=== PATIENT | female | born 1970 | race American Indian/Alaskan Native ===

== ENCOUNTER 2019-03-12 21:18 | Observation (INO) | payer BC, OTHER ==
[2019-03-12] MEDS ORDERED: CATAPRES PO ONE (21:48)
--- NOTE | 2019-03-12 21:48 | Emergency Department Report ---
Blank Doc - Documentation Documentation: This is a 48-year-old female that presents with chest pain and SOB with radiat ion to left arm. HTN in triage. This initial assessment/diagnostic orders/clinical plan/treatment(s) is/are subject to change based on patient's health status, clinical progression and re-assessment by fellow clinical providers in the ED. Further treatment and workup at subsequent clinical providers discretion. Patient/guardians urged not to elope from the ED as their condition may be serious if not clinically assessed and managed. Initial orders include: 1- Patient sent to MAIN ED for further evaluation and treatment 2- labs 3- EKG 4- CXR 5- catapres
[2019-03-12] MEDS ORDERED: BABY ASPIRIN PO ONE (21:49)
[2019-03-12 22:34] LABS: Basophils % (Auto) 0.4 % (0.0-1.8); Eosinophils % (Auto) 0.5 % (0.0-4.3); Hematocrit 39.3 % (30.3-42.9); Hemoglobin 13.3 gm/dl (10.1-14.3); Lymphocytes # (Auto) 2.3 K/mm3 (1.2-5.4); Lymphocytes % (Auto) 34.8 % (13.4-35.0); Mean Corpuscular HGB Conc 34 % (30-34); Mean Corpuscular Volume 96 fl (79-97); Monocytes # (Auto) 0.4 K/mm3 (0.0-0.8); Monocytes % (Auto) 6.6 % (0.0-7.3); Platelet Count 213 K/mm3 (140-440); Red Blood Count 4.11 M/mm3 (3.65-5.03); Red Cell Distribution Width 13.7 % (13.2-15.2)
[2019-03-12 22:45] LABS: INR 0.98 (0.87-1.13)
[2019-03-12 22:46] LABS: Partial Thromboplastin Time 31.7 Sec. (24.2-36.6)
[2019-03-12 22:55] LABS: BUN/Creatinine Ratio 12; Blood Urea Nitrogen 11 mg/dL (7-17); Hemolysis Index 5
[2019-03-12 23:15] LABS: Bacteria,Urine 1+ /HPF (Negative); Bilirubin,Urine NEG (Negative); Blood,Urine SM (Negative); Color,Urine Yellow (Yellow); Hyaline Casts,Urine 4 /LPF; Mucus,Urine 3+ /HPF; Protein,Urine <15 mg/dL mg/dL (Negative); Urobilinogen,Urine < 2.0 mg/dL (<2.0)
[2019-03-12 23:21] LABS: Amphetamine Screen,Urine PRESUMPTIVE NEGATIVE; Benzodiazepines Screen,Urine PRESUMPTIVE NEGATIVE; Cocaine Screen,Urine PRESUMPTIVE NEGATIVE; Methadone Screen,Urine PRESUMPTIVE NEGATIVE; Opiate Screen,Urine PRESUMPTIVE NEGATIVE
--- NOTE | 2019-03-12 23:28 | XRay Report ---
PROCEDURE: XR CHEST ROUTINE 2V TECHNIQUE: PA and lateral chest radiographs were obtained. HISTORY: Chest Pain COMPARISONS: None. FINDINGS: Heart: Normal. Mediastinum/Vessels: Normal. Lungs/Pleural space: Normal. Bony thorax: No acute osseous abnormality. IMPRESSION: No acute pulmonary disease. This document is electronically signed by Cirilo Olsen MD., Mar 12 2019 11:26:47 PM ET
[2019-03-12] MEDS ORDERED: ZOFRAN IV ONE (23:35)
[2019-03-12] MEDS ORDERED: MORPHINE IV ONE (23:35)
[2019-03-12 23:42] LABS: Cannabinoid Screen,Urine PRESUMPTIVE POSITIVE
[2019-03-13 00:13] LABS: Alanine Aminotransferase 7 units/L (7-56); Albumin 3.5 g/dL (3.9-5)
[2019-03-13 00:16] LABS: Bilirubin,Direct < 0.2 mg/dL (0-0.2)
--- NOTE | 2019-03-13 01:34 | Emergency Department Report ---
ED Abdominal Pain HPI - General Chief Complaint: Chest Pain Stated Complaint: CHEST AND ABD PAIN Time Seen by Provider: 03/12/19 21:45 Source: patient Mode of arrival: Ambulatory Limitations: No Limitations - History of Present Illness Initial Comments: 48-year-old female with history of hypertension presents to ED with abdominal pain 3 days. Patient states pain is located in the epigastric and left upper quadrant. The patient states she was diagnosed with pancreatitis in the past, and this pain feels similar to that. Denies any radiation of pain. Patient reports associated nausea and vomiting, denies fever. Patient also reported intermittent history of left-sided chest pain that radiates into the left arm, however patient states that her abdominal pain is worse than her chest pain right now. Patient denies alcohol use or drug use. PCP: arnol MD Complaint: abdominal pain -: days(s) (3) Location: LLQ, epigastric Radiation: none Migration to: no migration Severity: moderate Severity scale (0 -10): 4 Quality: aching Consistency: constant Improves With: nothing Worsens With: nothing Associated Symptoms: nausea, vomiting - Related Data Previous Rx's Medication Instructions Recorded Last Taken Type oxyCODONE /ACETAMINOPHEN [Percocet 1 tab PO Q6HR PRN #20 tablet 01/30/15 Unknown Rx 5/325] Allergies Allergy/AdvReac Type Severity Reaction Status Date / Time No Known Allergies Allergy Unverified 01/30/15 14:38 ED Review of Systems ROS: Stated complaint: CHEST AND ABD PAIN Other details as noted in HPI Comment: All other systems reviewed and negative Constitutional: denies: chills, fever Respiratory: shortness of breath Cardiovascular: chest pain Gastrointestinal: abdominal pain, nausea, vomiting ED Past Medical Hx - Past Medical History Hx Hypertension: Yes Hx Seizures: Yes - Surgical History Past Surgical History?: No - Social History Smoking Status: Current Every Day Smoker Substance Use Type: Marijuana - Medications Home Medications: Home Medications Medication Instructions Recorded Confirmed Last Taken Type oxyCODONE /ACETAMINOPHEN [Percocet 1 tab PO Q6HR PRN #20 tablet 01/30/15 Unknown Rx 5/325] ED Physical Exam - General Limitations: No Limitations General appearance: alert, in no apparent distress - Head Head exam: Present: atraumatic, normocephalic - Eye Eye exam: Present: normal appearance - ENT ENT exam: Present: mucous membranes moist - Neck Neck exam: Present: normal inspection - Respiratory Respiratory exam: Present: normal lung sounds bilaterally. Absent: respiratory distress - Cardiovascular Cardiovascular Exam: Present: regular rate, normal rhythm - GI/Abdominal GI/Abdominal exam: Present: soft, tenderness (mild epigastric and LUQ tenderness). Absent: distended - Extremities Exam Extremities exam: Present: normal inspection - Neurological Exam Neurological exam: Present: alert, oriented X3 - Psychiatric Psychiatric exam: Present: normal affect, normal mood - Skin Skin exam: Present: warm, dry, intact, normal color ED Course Vital Signs 03/12/19 03/12/19 03/12/19 21:24 21:50 22:11 Temperature 98.0 F Pulse Rate 95 H 79 Respiratory 20 Rate Blood Pressure 240/93 203/73 201/90 Blood Pressure [Left] O2 Sat by Pulse 99 Oximetry 03/12/19 03/12/19 03/12/19 22:13 22:31 22:35 Temperature 98.1 F Pulse Rate 86 76 Respiratory 14 18 Rate Blood Pressure 201/90 203/73 Blood Pressure 201/90 [Left] O2 Sat by Pulse 100 100 Oximetry 03/12/19 03/12/19 03/12/19 23:01 23:15 23:31 Temperature Pulse Rate 79 76 80 Respiratory 21 11 L 10 L Rate Blood Pressure 203/73 175/97 201/90 Blood Pressure [Left] O2 Sat by Pulse 100 100 100 Oximetry 03/13/19 03/13/19 03/13/19 00:00 00:31 01:00 Temperature Pulse Rate 84 81 83 Respiratory 15 13 16 Rate Blood Pressure 194/98 189/92 189/92 Blood Pressure [Left] O2 Sat by Pulse 99 100 100 Oximetry 03/13/19 02:11 Temperature Pulse Rate Respiratory Rate Blood Pressure 123/102 Blood Pressure [Left] O2 Sat by Pulse 100 Oximetry ED Medical Decision Making - Lab Data Result diagrams: 03/12/19 22:00 03/12/19 22:00 - EKG Data -: EKG Interpreted by Me EKG shows normal: sinus rhythm, axis, intervals, QRS complexes, ST-T waves Rate: normal - EKG Data Interpretation: no acute changes, LVH - Radiology Data Radiology results: report reviewed, image reviewed - Differential Diagnosis ACS, pancreatitis, PE Critical care attestation.: If time is entered above; I have spent that time in minutes in the direct care of this critically ill patient, excluding procedure time. ED Disposition Clinical Impression: Hypertensive urgency, Chest pain, Abdominal pain Disposition: DC-09 OP ADMIT IP TO THIS HOSP Is pt being admited?: Yes Condition: Stable Instructions: Chest Pain (ED) Referrals: PRIMARY CARE,MD [Primary Care Provider] - 3-5 Days Time of Disposition: 02:48
--- NOTE | 2019-03-13 02:33 | Cat Scan Report ---
PROCEDURE: CT ANGIO CHEST/ABDOMEN/PELVIS TECHNIQUE: Computerized tomographic angiography of the chest was performed after the IV injection of iodinated nonionic contrast including image processing. The image data was postprocessed using 2-di mensional multiplanar reformatted (MPR) and 3-dimensional (MIP and/or volume rendered) techniques. Co mputerized axial tomography of the abdomen and pelvis was performed after the IV injection of iodinat ed nonionic contrast. Oral contrast was administered. HISTORY: Short of breath, chest pain, chest pain, elevated d-dimer COMPARISONS: None . TECHNICAL QUALITY: Satisfactory. FINDINGS: Heart and pericardium: Heart is mildly enlarged. Thoracic aorta: No evidence for aortic aneurysm or dissection. Pulmonary vasculature: No evidence for acute pulmonary embolus. Lymph nodes: No enlarged thoracic lymph nodes. Lungs: Normal. Pleural space: No effusion, thickening, or pneumothorax. Liver: Punctate hypodensities seen in the liver, too small to fully characterize. Spleen: Normal size and attenuation. Gallbladder and biliary system: Normal. Pancreas: Normal. Kidneys and adrenal glands: Normal. GI tract: No evidence of bowel dilatation or obstruction. No CT evidence for appendicitis or divertic ulitis. Lymph nodes and mesentery: Normal. Vasculature: No evidence for aortic aneurysm. Bladder/pelvic structures: Normal. Intraperitoneal fluid: None. Musculoskeletal structures: No significant abnormality. Other: None . IMPRESSION: No evidence for aortic aneurysm or dissection. No evidence for acute pulmonary embolus. Mild cardiomegaly. This document is electronically signed by Ally Boyd MD., Mar 13 2019 02:31:13 AM ET
[2019-03-13] MEDS ORDERED: MORPHINE IV ONE (03:11)
[2019-03-13] MEDS ORDERED: APRESOLINE IV ONE (03:18)
[2019-03-13] MEDS ORDERED: SODIUM CHLORIDE FLUSH SYRINGE 10 ML IV PRN ×2 (03:20)
[2019-03-13] MEDS ORDERED: TYLENOL PO PRN (03:20)
[2019-03-13] MEDS ORDERED: ZOFRAN IV PRN (03:20)
[2019-03-13 03:43] LABS: Basophils % (Auto) 0.6 % (0.0-1.8); Eosinophils % (Auto) 0.4 % (0.0-4.3); Hematocrit 36.9 % (30.3-42.9); Hemoglobin 12.5 gm/dl (10.1-14.3); Lymphocytes # (Auto) 2.8 K/mm3 (1.2-5.4); Lymphocytes % (Auto) 44.9 % (13.4-35.0); Mean Corpuscular HGB Conc 34 % (30-34); Mean Corpuscular Volume 96 fl (79-97); Monocytes # (Auto) 0.4 K/mm3 (0.0-0.8); Monocytes % (Auto) 6.2 % (0.0-7.3); Platelet Count 209 K/mm3 (140-440); Red Blood Count 3.84 M/mm3 (3.65-5.03); Red Cell Distribution Width 14.1 % (13.2-15.2)
[2019-03-13] MEDS ORDERED: TORADOL IV ONE (03:49)
--- NOTE | 2019-03-13 03:53 | History and Physical Report ---
History of Present Illness Date of examination: 03/13/19 Date of admission: 03/13/2019 Chief complaint: Abdominal pain, x 3 days History of present illness: Pt is a 48-year-old female with PMHx of hypertension, seizure disorder, pancreatitis who presents to ER with abdominal pain 3 days. Patient states pain is located in the epigastric and left upper quadrant. Patient also reported intermittent chest pain that radiates to the left arm. Pt states that the pain in her abdomen is more bothersome that the chest pain. Patient reports that she was diagnosed with pancreatitis in the past, and the abdominal pain feels similar to the prior abdominal pain. Pt denies n/v/d, she denies radiation of pain, denies recent travelling, denies ill-contact, denies fever or chills denies recent alcohol use. Pt was seen in the ER and admitted for evaluation and treatment. Past History Past Medical History: hypertension, seizures, other (pancreatitis) Past Surgical History: No surgical history Social history: smoking (marijuana) Family history: no significant family history Medications and Allergies Allergies Allergy/AdvReac Type Severity Reaction Status Date / Time No Known Allergies Allergy Verified 04/12/19 10:16 Home Medications Medication Instructions Recorded Confirmed Last Taken Type Labetalol [Labetalol 200mg TAB] 200 mg PO BID #30 tablet 03/14/19 Unknown Rx Pantoprazole [Protonix TAB] 40 mg PO BID #60 tablet 03/14/19 Unknown Rx Sucralfate [Carafate] 1 gm PO ACHS 30 Days oral.liqd 03/14/19 Unknown Rx amLODIPine [Norvasc] 10 mg PO QDAY #30 tablet 03/14/19 Unknown Rx Naproxen [Naprosyn] 500 mg PO BID #20 tablet 04/12/19 Unknown Rx Active Meds: Active Medications Acetaminophen (Tylenol) 650 mg PO Q4H PRN PRN Reason: Pain MILD(1-3)/Fever >100.5/MCGOWAN Enoxaparin Sodium (Lovenox) 40 mg SUB-Q QDAY@1000 PARRISH Dextrose/Sodium Chloride (D5/0.45ns) 1,000 mls @ 100 mls/hr IV DIRECT PARRISH Ketorolac Tromethamine (Toradol) 15 mg IV ONCE ONE Stop: 03/13/19 03:50 Morphine Sulfate (Morphine) 2 mg IV Q4H PRN PRN Reason: Pain, Moderate (4-6) Ondansetron HCl (Zofran) 4 mg IV Q8H PRN PRN Reason: Nausea And Vomiting Sodium Chloride (Sodium Chloride Flush Syringe 10 Ml) 10 ml IV BID PARRISH Sodium Chloride (Sodium Chloride Flush Syringe 10 Ml) 10 ml IV PRN PRN PRN Reason: LINE FLUSH Review of Systems Cardiovascular: chest pain Gastrointestinal: abdominal pain Exam - Constitutional Vitals: Temp Pulse Resp BP Pulse Ox 98.1 F 85 14 189/91 100 03/12/19 22:13 03/13/19 03:29 03/13/19 03:00 03/13/19 03:29 03/13/19 03:00 General appearance: Present: no acute distress - EENT Eyes: Present: EOM intact ENT: hearing intact - Neck Neck: Present: supple, normal ROM - Respiratory Respiratory effort: normal Respiratory: bilateral: CTA - Cardiovascular Rhythm: regular Heart Sounds: Present: S1 & S2 - Extremities Extremities: no ischemia, No edema Peripheral Pulses: within normal limits - Rectal Rectal Exam: deferred - Integumentary Integumentary: Present: warm, dry - Musculoskeletal Musculoskeletal: strength equal bilaterally - Psychiatric Psychiatric: cooperative - Neurologic Neurologic: moves all extremities Results - Labs CBC & Chem 7: 03/13/19 03:29 03/13/19 03:29 Labs: Laboratory Last Values WBC 6.3 K/mm3 (4.5-11.0) 03/13/19 03:29 RBC 3.84 M/mm3 (3.65-5.03) 03/13/19 03:29 Hgb 12.5 gm/dl (10.1-14.3) 03/13/19 03:29 Hct 36.9 % (30.3-42.9) 03/13/19 03:29 MCV 96 fl (79-97) 03/13/19 03:29 MCH 33 pg (28-32) H 03/13/19 03:29 MCHC 34 % (30-34) 03/13/19 03:29 RDW 14.1 % (13.2-15.2) 03/13/19 03:29 Plt Count 209 K/mm3 (140-440) 03/13/19 03:29 Lymph % (Auto) 44.9 % (13.4-35.0) H 03/13/19 03:29 [place] % (Auto) 6.2 % (0.0-7.3) 03/13/19 03:29 Eos % (Auto) 0.4 % (0.0-4.3) 03/13/19 03:29 Baso % (Auto) 0.6 % (0.0-1.8) 03/13/19 03:29 Lymph # 2.8 K/mm3 (1.2-5.4) 03/13/19 03:29 [place] # 0.4 K/mm3 (0.0-0.8) 03/13/19 03:29 Eos # 0.0 K/mm3 (0.0-0.4) 03/13/19 03:29 Baso # 0.0 K/mm3 (0.0-0.1) 03/13/19 03:29 Seg Neutrophils % 47.9 % (40.0-70.0) 03/13/19 03:29 Seg Neutrophils # 3.0 K/mm3 (1.8-7.7) 03/13/19 03:29 PT 13.6 Sec. (12.2-14.9) 03/12/19 22:00 INR 0.98 (0.87-1.13) 03/12/19 22:00 APTT 31.7 Sec. (24.2-36.6) 03/12/19 22:00 236.48 ng/mlDDU (0-234) H 03/12/19 22:00 Sodium 142 mmol/L (137-145) 03/12/19 22:00 Potassium 3.8 mmol/L (3.6-5.0) 03/12/19 22:00 Chloride 103.8 mmol/L (98-107) 03/12/19 22:00 Carbon Dioxide 25 mmol/L (22-30) 03/12/19 22:00 17 mmol/L 03/12/19 22:00 BUN 11 mg/dL (7-17) 03/12/19 22:00 0.9 mg/dL (0.7-1.2) 03/12/19 22:00 Estimated GFR > 60 ml/min 03/12/19 22:00 12 % 03/12/19 22:00 Glucose 151 mg/dL (65-100) H 03/12/19 22:00 Calcium 9.0 mg/dL (8.4-10.2) 03/12/19 22:00 < 0.20 mg/dL (0.1-1.2) 03/12/19 23:18 < 0.2 mg/dL (0-0.2) 03/12/19 23:18 0.0 mg/dL 03/12/19 23:18 AST 17 units/L (5-40) 03/12/19 23:18 ALT 7 units/L (7-56) 03/12/19 23:18 65 units/L (35-129) 03/12/19 23:18 < 0.010 ng/mL (0.00-0.029) 03/13/19 00:24 7.5 g/dL (6.3-8.2) 03/12/19 23:18 3.5 g/dL (3.9-5) L 03/12/19 23:18 0.9 % 03/12/19 23:18 12 units/L (13-60) L 03/12/19 23:18 Yellow (Yellow) 03/12/19 22:57 Cloudy (Clear) 03/12/19 22:57 5.0 (5.0-7.0) 03/12/19 22:57 Ur Specific [place] 1.031 (1.003-1.030) H 03/12/19 22:57 <15 mg/dl mg/dL (Negative) 03/12/19 22:57 Neg mg/dL (Negative) 03/12/19 22:57 Neg mg/dL (Negative) 03/12/19 22:57 Sm (Negative) 03/12/19 22:57 Neg (Negative) 03/12/19 22:57 Neg (Negative) 03/12/19 22:57 < 2.0 mg/dL (<2.0) 03/12/19 22:57 Ur Leukocyte Esterase Neg (Negative) 03/12/19 22:57 3.0 /HPF (0.0-6.0) 03/12/19 22:57 5.0 /HPF (0.0-6.0) 03/12/19 22:57 U Epithel Cells (Auto) 23.0 /HPF (0-13.0) H 03/12/19 22:57 1+ /HPF (Negative) 03/12/19 22:57 Hyaline Casts 4 /LPF 03/12/19 22:57 3+ /HPF 03/12/19 22:57 Presumptive negative 03/12/19 22:57 Presumptive negative 03/12/19 22:57 Ur Barbiturates Screen Presumptive negative 03/12/19 22:57 Ur Phencyclidine Scrn Presumptive negative 03/12/19 22:57 Ur Amphetamines Screen Presumptive negative 03/12/19 22:57 U Benzodiazepines Scrn Presumptive negative 03/12/19 22:57 Presumptive negative 03/12/19 22:57 U Marijuana (THC) Screen Presumptive positive 03/12/19 22:57 Disclamer 03/12/19 22:57 Assessment and Plan Assessment and plan: 1. Abdominal pain (etiology unclear, likely due to pancreatitis) 3. H/o pancreatitis 4. Leukocytosis 5. Hypertension 6. H/o seizure disorder, Plan Pt is admitted to surgical floor Consult GI for evaluation Keep NPO until seen by GI Pain control PRN for abdominal pain Protonix 40 IV Q day IVF with D51/2 at 125 ml Advance Directives: Yes VTE prophylaxis?: Chemical Plan of care discussed with patient/family: Yes
[2019-03-13] MEDS ORDERED: D5/0.45NS 1,000 ML IV SCH (04:00)
[2019-03-13 04:03] LABS: BUN/Creatinine Ratio 13; Blood Urea Nitrogen 10 mg/dL (7-17); Hemolysis Index 11
[2019-03-13] MEDS ORDERED: APRESOLINE IV PRN (07:00)
--- NOTE | 2019-03-13 08:42 | Cat Scan Report ---
PROCEDURE: CT HEAD/BRAIN WO CON TECHNIQUE: Computerized tomography of the head was performed without contrast material. CT DOSE LENGTH PRODUCT: 912.2 mGycm HISTORY: headache COMPARISONS: None . FINDINGS: Air-fluid level in the sphenoid sinus otherwise paranasal sinuses and mastoids well aerated No displaced fracture. No midline shift. No herniation. No acute bleed. No hydrocephalus. No subarachnoid hemorrhage. Plus minus trace atrophy with plus minus trace periventricular small vessel disease If the patient has continued symptomatology followup MRI may be helpful if clinically possible and i f clinically warranted. IMPRESSION: Acute sinusitis with an air-fluid level in the sphenoid sinus as discussed above Age-appropriate brain without acute bleed . This document is electronically signed by Link Winslow MD., Mar 13 2019 08:39:50 AM ET
[2019-03-13] MEDS ORDERED: LOVENOX SUB-Q SCH (10:00)
[2019-03-13] MEDS ORDERED: LEXISCAN IV ONE ×2 (11:34→11:35)
[2019-03-13] MEDS: NORVASC PO SCH (12:36)
[2019-03-13] MEDS: LOVENOX SUB-Q SCH (12:36)
--- NOTE | 2019-03-13 13:32 | Progress Note ---
Assessment and Plan Assessment and plan: Accelerated hypertension. Start labetalol BID Left upper quadrant and epigastric abdominal pain. Etiology is unknown. GI consultation. CT scan of abdomen and pelvis essentially negative. Lipase norm al. Atypical Chest pain. Follow-up Lexiscan. History Interval history: No new issues overnight. Patient still complains of left upper quadrant abdominal pain. Hospitalist Physical - Constitutional Vitals: Temp Pulse Resp BP Pulse Ox 98.2 F 86 18 215/88 98 03/13/19 08:05 03/13/19 08:05 03/13/19 08:05 03/13/19 11:49 03/13/19 08:05 General appearance: Present: no acute distress, well-nourished - EENT Eyes: Present: PERRL, EOM intact ENT: hearing intact, clear oral mucosa, dentition normal - Neck Neck: Present: supple, normal ROM - Respiratory Respiratory effort: normal Respiratory: bilateral: CTA - Cardiovascular Rhythm: regular Heart Sounds: Present: S1 & S2. Absent: gallop, rub - Extremities Extremities: no ischemia, No edema, Full ROM - Abdominal General gastrointestinal: soft, tender (left upper quadrant and epigastric), non-distended, normal bowel sounds Localized gastrointestinal: tender: LUQ - Integumentary Integumentary: Present: clear, warm, dry - Neurologic Neurologic: CNII-XII intact, moves all extremities Results - Labs CBC & Chem 7: 03/13/19 03:29 03/13/19 03:29 Labs: Laboratory Last Values WBC 6.3 K/mm3 (4.5-11.0) 03/13/19 03:29 RBC 3.84 M/mm3 (3.65-5.03) 03/13/19 03:29 Hgb 12.5 gm/dl (10.1-14.3) 03/13/19 03:29 Hct 36.9 % (30.3-42.9) 03/13/19 03:29 MCV 96 fl (79-97) 03/13/19 03:29 MCH 33 pg (28-32) H 03/13/19 03:29 MCHC 34 % (30-34) 03/13/19 03:29 RDW 14.1 % (13.2-15.2) 03/13/19 03:29 Plt Count 209 K/mm3 (140-440) 03/13/19 03:29 Lymph % (Auto) 44.9 % (13.4-35.0) H 03/13/19 03:29 [place] % (Auto) 6.2 % (0.0-7.3) 03/13/19 03:29 Eos % (Auto) 0.4 % (0.0-4.3) 03/13/19 03:29 Baso % (Auto) 0.6 % (0.0-1.8) 03/13/19 03:29 Lymph # 2.8 K/mm3 (1.2-5.4) 03/13/19 03:29 [place] # 0.4 K/mm3 (0.0-0.8) 03/13/19 03:29 Eos # 0.0 K/mm3 (0.0-0.4) 03/13/19 03:29 Baso # 0.0 K/mm3 (0.0-0.1) 03/13/19 03:29 Seg Neutrophils % 47.9 % (40.0-70.0) 03/13/19 03:29 Seg Neutrophils # 3.0 K/mm3 (1.8-7.7) 03/13/19 03:29 PT 13.6 Sec. (12.2-14.9) 03/12/19 22:00 INR 0.98 (0.87-1.13) 03/12/19 22:00 APTT 31.7 Sec. (24.2-36.6) 03/12/19 22:00 236.48 ng/mlDDU (0-234) H 03/12/19 22:00 Sodium 136 mmol/L (137-145) L 03/13/19 03:29 Potassium 3.9 mmol/L (3.6-5.0) 03/13/19 03:29 Chloride 100.6 mmol/L (98-107) 03/13/19 03:29 Carbon Dioxide 23 mmol/L (22-30) 03/13/19 03:29 16 mmol/L 03/13/19 03:29 BUN 10 mg/dL (7-17) 03/13/19 03:29 0.8 mg/dL (0.7-1.2) 03/13/19 03:29 Estimated GFR > 60 ml/min 03/13/19 03:29 13 % 03/13/19 03:29 Glucose 98 mg/dL (65-100) 03/13/19 03:29 Calcium 9.0 mg/dL (8.4-10.2) 03/13/19 03:29 < 0.20 mg/dL (0.1-1.2) 03/12/19 23:18 < 0.2 mg/dL (0-0.2) 03/12/19 23:18 0.0 mg/dL 03/12/19 23:18 AST 17 units/L (5-40) 03/12/19 23:18 ALT 7 units/L (7-56) 03/12/19 23:18 65 units/L (35-129) 03/12/19 23:18 < 0.010 ng/mL (0.00-0.029) 03/13/19 00:24 7.5 g/dL (6.3-8.2) 03/12/19 23:18 3.5 g/dL (3.9-5) L 03/12/19 23:18 0.9 % 03/12/19 23:18 12 units/L (13-60) L 03/13/19 03:29 Yellow (Yellow) 03/12/19 22:57 Cloudy (Clear) 03/12/19 22:57 5.0 (5.0-7.0) 03/12/19 22:57 Ur Specific [place] 1.031 (1.003-1.030) H 03/12/19 22:57 <15 mg/dl mg/dL (Negative) 03/12/19 22:57 Neg mg/dL (Negative) 03/12/19 22:57 Neg mg/dL (Negative) 03/12/19 22:57 Sm (Negative) 03/12/19 22:57 Neg (Negative) 03/12/19 22:57 Neg (Negative) 03/12/19 22:57 < 2.0 mg/dL (<2.0) 03/12/19 22:57 Ur Leukocyte Esterase Neg (Negative) 03/12/19 22:57 3.0 /HPF (0.0-6.0) 03/12/19 22:57 5.0 /HPF (0.0-6.0) 03/12/19 22:57 U Epithel Cells (Auto) 23.0 /HPF (0-13.0) H 03/12/19 22:57 1+ /HPF (Negative) 03/12/19 22:57 Hyaline Casts 4 /LPF 03/12/19 22:57 3+ /HPF 03/12/19 22:57 Presumptive negative 03/12/19 22:57 Presumptive negative 03/12/19 22:57 Ur Barbiturates Screen Presumptive negative 03/12/19 22:57 Ur Phencyclidine Scrn Presumptive negative 03/12/19 22:57 Ur Amphetamines Screen Presumptive negative 03/12/19 22:57 U Benzodiazepines Scrn Presumptive negative 03/12/19 22:57 Presumptive negative 03/12/19 22:57 U Marijuana (THC) Screen Presumptive positive 03/12/19 22:57 Disclamer 03/12/19 22:57 Active Medications - Current Medications Current Medications: Generic Name Dose Route Start Last Admin Trade Name Freq PRN Reason Stop Dose Admin Acetaminophen 650 mg 03/13/19 03:20 03/13/19 12:35 Tylenol PO 650 mg Q4H PRN Administration Pain MILD(1-3)/Fever >100.5/MCGOWAN Amlodipine Besylate 10 mg 03/13/19 10:00 03/13/19 12:36 Norvasc PO 10 mg QDAY PARRISH Administration Enoxaparin Sodium 40 mg 03/13/19 10:00 03/13/19 12:36 Lovenox SUB-Q 40 mg QDAY@1000 PARRISH Administration Hydralazine HCl 5 mg 03/13/19 07:00 Apresoline IV Q6H PRN Hypertension Morphine Sulfate 2 mg 03/13/19 03:19 Morphine IV Q4H PRN Pain, Moderate (4-6) Ondansetron HCl 4 mg 03/13/19 03:20 03/13/19 12:39 Zofran IV 4 mg Q8H PRN Administration Nausea And Vomiting Sodium Chloride 10 ml 03/13/19 10:00 Sodium Chloride Flush Syringe 10 Ml IV BID PARRISH Sodium Chloride 10 ml 03/13/19 03:20 Sodium Chloride Flush Syringe 10 Ml IV PRN PRN LINE FLUSH Nutrition/Malnutrition Assess - Dietary Evaluation Nutrition/Malnutrition Findings: Nutrition Notes Start: 03/13/19 11:08 Freq: Status: Active Protocol: Document 03/13/19 11:08 CP (Rec: 03/13/19 11:14 CP [id number]) Co-Sign 03/13/19 11:08 LP Nutrition Notes Need for Assessment generated from: mobile developer,MST Initial or Follow up Assessment Current Diagnosis Hypertension Other Pertinent Diagnosis Chest/abdominal pain Current Diet NPO Labs/Tests Reviewed Pertinent Medications Reviewed Height 5 ft 2 in Weight 70.9 kg Usual Body Weight 68 kg [place] Body Weight (kg) 50.00 BMI 28.5 Intake Prior to Admission Fair Weight change and time frame Pt stated that her weight fluctuates. Weight Status Overweight Subjective/Other Information Pt screened for malnutrition. Pt denies any edema, loss in center director-strength and does not have any outstanding muscle or fat loss. Pt does not appear to have malnutrition. Percent of energy/protein needs met: 0%/0% Burn Absent Trauma Absent #1 Nutrition Diagnosis Inadequate oral intake Etiology EKG As Evidenced by Signs and Symptoms NPO status Is patient on ventilator? No Is Patient Ambulatory and/or Out of Bed No [facility] 1548.552 Calculation Used for Recommendations [facility] Additional Notes Pro: (0.8-1g/kg) 57-78g/day Fluid: 1mL/kcal or per MD request Nutrition Intervention Change Diet Order: Advance per MD Goal #1 Diet advancement Anticipated Discharge Needs: Unable to determine at this time Follow-Up By: 03/14/19 Additional Comments F/U: Diet advancement
[2019-03-13] MEDS: SODIUM CHLORIDE FLUSH SYRINGE 10 ML IV SCH ×2 (13:38→21:05)
--- NOTE | 2019-03-13 15:23 | Gastroenterology Consultation ---
<ALEISHA ALMAGUER - Last Filed: 03/13/19 15:46> History of Present Illness - Reason for Consult Consult date: 03/13/19 abdominal pain Requesting physician: SALVADOR DREW - History of Present Illness Patient is a 48 y/o female with PMH of HTN, seizures, and pancreatitis who presented to ED with c/o CP and abdominal pain to which GI has been consulted. Abdominal CT, chest CTA, cardiac enzymes, and stress test negative. This afternoon patient was resting in bed w/o acute distress. She reports LUQ abd pain that radiates to her back with associated nausea and 1 episode of vomiting since last with pain waxing and waning. Pain improved with pain medication only and not correlated with PO intake. Currently tolerating diet. States her abd pain is similar to the pain she had when she was diagnosed with pancreatitis last year at [facility] (she is unaware of etiology). CP now improved. Denies fever, SOB, wt loss, signs of bleeding, jaundice, dysphagia, odynophagia, or diarrhea. Admits to feeling constipation with no BM so far this week. Has been taking NSAIDs heavily at home (Goody's powder, Ibuprophen, ASA, etc.). No alcohol but uses marijuana on average 1-2x/week. Active smoker. Past History Past Medical History: hypertension, seizures Past Surgical History: No surgical history Social history: smoking, other (Marijuana). denies: alcohol abuse Medications and Allergies Allergies Allergy/AdvReac Type Severity Reaction Status Date / Time No Known Allergies Allergy Unverified 01/30/15 14:38 Home Medications Medication Instructions Recorded Confirmed Last Taken Type No Known Home Medications [No 03/13/19 03/13/19 Unknown History Reported Home Medications] Active Meds: Active Medications Acetaminophen (Tylenol) 650 mg PO Q4H PRN PRN Reason: Pain MILD(1-3)/Fever >100.5/MCGOWAN Last Admin: 03/13/19 12:35 Dose: 650 mg Documented by: Amlodipine Besylate (Norvasc) 10 mg PO QDAY [facility] Last Admin: 03/13/19 12:36 Dose: 10 mg Documented by: Enoxaparin Sodium (Lovenox) 40 mg SUB-Q QDAY@1000 [facility] Last Admin: 03/13/19 12:36 Dose: 40 mg Documented by: Hydralazine HCl (Apresoline) 5 mg IV Q6H PRN PRN Reason: Hypertension Last Admin: 03/13/19 13:37 Dose: 5 mg Documented by: Labetalol HCl (Normodyne) 200 mg PO BID [facility] Morphine Sulfate (Morphine) 2 mg IV Q4H PRN PRN Reason: Pain, Moderate (4-6) Ondansetron HCl (Zofran) 4 mg IV Q8H PRN PRN Reason: Nausea And Vomiting Last Admin: 03/13/19 12:39 Dose: 4 mg Documented by: Sodium Chloride (Sodium Chloride Flush Syringe 10 Ml) 10 ml IV BID [facility] Last Admin: 03/13/19 13:38 Dose: 10 ml Documented by: Sodium Chloride (Sodium Chloride Flush Syringe 10 Ml) 10 ml IV PRN PRN PRN Reason: LINE FLUSH medications reviewed/updated as required Review of Systems - Review of Systems All systems: negative Cardiovascular: chest pain Gastrointestinal: abdominal pain (LUQ), nausea, constipation Exam - Constitutional Vital Signs: Temp Pulse Resp BP Pulse Ox 98.2 F 86 18 215/88 98 03/13/19 08:05 03/13/19 08:05 03/13/19 08:05 03/13/19 11:49 03/13/19 08:05 General appearance: no acute distress - EENT Eyes: PERRL, EOM intact ENT: hearing intact - Respiratory Respiratory: bilateral: CTA - Cardiovascular Rhythm: regular - Gastrointestinal General gastrointestinal: Present: soft, tender (LUQ), non-distended, normal b owel sounds - Neurologic Neurological: alert and oriented x3 - Labs CBC & Chem 7: 03/13/19 03:29 03/13/19 03:29 Lab Results: Laboratory Results - last 24 hr 03/12/19 03/12/19 03/12/19 22:00 22:00 22:00 WBC 6.7 RBC 4.11 Hgb 13.3 Hct 39.3 MCV 96 MCH 33 H MCHC 34 RDW 13.7 Plt Count 213 Lymph % (Auto) 34.8 Scurry % (Auto) 6.6 Eos % (Auto) 0.5 Baso % (Auto) 0.4 Lymph # 2.3 Scurry # 0.4 Eos # 0.0 Baso # 0.0 Seg Neutrophils % 57.7 Seg Neutrophils # 3.9 PT 13.6 INR 0.98 APTT 31.7 D-Dimer 236.48 H Sodium 142 Potassium 3.8 Chloride 103.8 Carbon Dioxide 25 Anion Gap 17 BUN 11 Creatinine 0.9 Estimated GFR > 60 BUN/Creatinine Ratio 12 Glucose 151 H Calcium 9.0 Total Bilirubin Direct Bilirubin Indirect Bilirubin AST ALT Alkaline Phosphatase Troponin T < 0.010 Total Protein Albumin Albumin/Globulin Ratio Lipase Urine Color Urine Turbidity Urine pH Ur Specific [place] Urine Protein Urine Glucose (UA) Urine Ketones Urine Blood Urine Nitrite Urine Bilirubin Urine Urobilinogen Ur Leukocyte Esterase Urine WBC (Auto) Urine RBC (Auto) U Epithel Cells (Auto) Urine Bacteria (Auto) Hyaline Casts Urine Mucus Urine Opiates Screen Urine Methadone Screen Ur Barbiturates Screen Ur Phencyclidine Scrn Ur Amphetamines Screen U Benzodiazepines Scrn Urine Cocaine Screen U Marijuana (THC) Screen Drugs of Abuse Note 03/12/19 03/12/19 03/12/19 22:57 22:57 23:18 WBC RBC Hgb Hct MCV MCH MCHC RDW Plt Count Lymph % (Auto) Scurry % (Auto) Eos % (Auto) Baso % (Auto) Lymph # Scurry # Eos # Baso # Seg Neutrophils % Seg Neutrophils # PT INR APTT D-Dimer Sodium Potassium Chloride Carbon Dioxide Anion Gap BUN Creatinine Estimated GFR BUN/Creatinine Ratio Glucose Calcium Total Bilirubin < 0.20 Direct Bilirubin < 0.2 Indirect Bilirubin 0.0 AST 17 ALT 7 Alkaline Phosphatase 65 Troponin T Total Protein 7.5 Albumin 3.5 L Albumin/Globulin Ratio 0.9 Lipase 12 L Urine Color Yellow Urine Turbidity Cloudy Urine pH 5.0 Ur Specific [place] 1.031 H Urine Protein <15 mg/dl Urine Glucose (UA) Neg Urine Ketones Neg Urine Blood Sm Urine Nitrite Neg Urine Bilirubin Neg Urine Urobilinogen < 2.0 Ur Leukocyte Esterase Neg Urine WBC (Auto) 3.0 Urine RBC (Auto) 5.0 U Epithel Cells (Auto) 23.0 H Urine Bacteria (Auto) 1+ Hyaline Casts 4 Urine Mucus 3+ Urine Opiates Screen Presumptive negative Urine Methadone Screen Presumptive negative Ur Barbiturates Screen Presumptive negative Ur Phencyclidine Scrn Presumptive negative Ur Amphetamines Screen Presumptive negative U Benzodiazepines Scrn Presumptive negative Urine Cocaine Screen Presumptive negative U Marijuana (THC) Screen Presumptive positive Drugs of Abuse Note Disclamer 03/13/19 03/13/19 03/13/19 00:24 03:29 03:29 WBC 6.3 RBC 3.84 Hgb 12.5 Hct 36.9 MCV 96 MCH 33 H MCHC 34 RDW 14.1 Plt Count 209 Lymph % (Auto) 44.9 H Scurry % (Auto) 6.2 Eos % (Auto) 0.4 Baso % (Auto) 0.6 Lymph # 2.8 Scurry # 0.4 Eos # 0.0 Baso # 0.0 Seg Neutrophils % 47.9 Seg Neutrophils # 3.0 PT INR APTT D-Dimer Sodium 136 L Potassium 3.9 Chloride 100.6 Carbon Dioxide 23 Anion Gap 16 BUN 10 Creatinine 0.8 Estimated GFR > 60 BUN/Creatinine Ratio 13 Glucose 98 Calcium 9.0 Total Bilirubin Direct Bilirubin Indirect Bilirubin AST ALT Alkaline Phosphatase Troponin T < 0.010 Total Protein Albumin Albumin/Globulin Ratio Lipase 12 L Urine Color Urine Turbidity Urine pH Ur Specific [place] Urine Protein Urine Glucose (UA) Urine Ketones Urine Blood Urine Nitrite Urine Bilirubin Urine Urobilinogen Ur Leukocyte Esterase Urine WBC (Auto) Urine RBC (Auto) U Epithel Cells (Auto) Urine Bacteria (Auto) Hyaline Casts Urine Mucus Urine Opiates Screen Urine Methadone Screen Ur Barbiturates Screen Ur Phencyclidine Scrn Ur Amphetamines Screen U Benzodiazepines Scrn Urine Cocaine Screen U Marijuana (THC) Screen Drugs of Abuse Note Assessment and Plan 1.abdominal pain (LUQ) 2.nausea 3.atypical CP -afebrile -WBC, H/H, LFTs, and lipase WNL -abd CT unremarkable (pancreas and biliary system normal) -Chest CTA, cardiac enzymes, and stress test negative -etiology unclear-possible ulcer vs GERD vs other -will schedule EGD in am for further evaluation -okay to resume diet for now as tolerated then NPO after MN -start on PPI -continue supportive care -will follow 4.constipation -ducolax supp now -start on daily Miralax -increase daily intake of water and dietary fiber <AGUSTINA ATKINSON - Last Filed: 03/13/19 20:54> Medications and Allergies Active Meds: Active Medications Acetaminophen (Tylenol) 650 mg PO Q4H PRN PRN Reason: Pain MILD(1-3)/Fever >100.5/MCGOWAN Last Admin: 03/13/19 12:35 Dose: 650 mg Documented by: Amlodipine Besylate (Norvasc) 10 mg PO QDAY [facility] Last Admin: 03/13/19 12:36 Dose: 10 mg Documented by: Enoxaparin Sodium (Lovenox) 40 mg SUB-Q QDAY@1000 [facility] Last Admin: 03/13/19 12:36 Dose: 40 mg Documented by: Hydralazine HCl (Apresoline) 5 mg IV Q6H PRN PRN Reason: Hypertension Last Admin: 03/13/19 13:37 Dose: 5 mg Documented by: Labetalol HCl (Normodyne) 200 mg PO BID [facility] Morphine Sulfate (Morphine) 2 mg IV Q4H PRN PRN Reason: Pain, Moderate (4-6) Last Admin: 03/13/19 20:09 Dose: 2 mg Documented by: Ondansetron HCl (Zofran) 4 mg IV Q8H PRN PRN Reason: Nausea And Vomiting Last Admin: 03/13/19 12:39 Dose: 4 mg Documented by: Pantoprazole Sodium (Protonix) 40 mg PO BID [facility] Polyethylene Glycol (Miralax 3350) 17 gm PO QDAY [facility] Last Admin: 03/13/19 18:07 Dose: 17 gm Documented by: Sodium Chloride (Sodium Chloride Flush Syringe 10 Ml) 10 ml IV BID [facility] Last Admin: 03/13/19 13:38 Dose: 10 ml Documented by: Sodium Chloride (Sodium Chloride Flush Syringe 10 Ml) 10 ml IV PRN PRN PRN Reason: LINE FLUSH Exam - Constitutional Vital Signs: Temp Pulse Resp BP Pulse Ox 98.8 F 80 18 164/63 98 03/13/19 19:26 03/13/19 19:26 03/13/19 19:26 03/13/19 19:26 03/13/19 19:26 - Labs CBC & Chem 7: 03/13/19 03:29 03/13/19 03:29 Lab Results: Laboratory Results - last 24 hr 03/12/19 03/12/19 03/12/19 22:00 22:00 22:00 WBC 6.7 RBC 4.11 Hgb 13.3 Hct 39.3 MCV 96 MCH 33 H MCHC 34 RDW 13.7 Plt Count 213 Lymph % (Auto) 34.8 Scurry % (Auto) 6.6 Eos % (Auto) 0.5 Baso % (Auto) 0.4 Lymph # 2.3 Scurry # 0.4 Eos # 0.0 Baso # 0.0 Seg Neutrophils % 57.7 Seg Neutrophils # 3.9 PT 13.6 INR 0.98 APTT 31.7 D-Dimer 236.48 H Sodium 142 Potassium 3.8 Chloride 103.8 Carbon Dioxide 25 Anion Gap 17 BUN 11 Creatinine 0.9 Estimated GFR > 60 BUN/Creatinine Ratio 12 Glucose 151 H Calcium 9.0 Total Bilirubin Direct Bilirubin Indirect Bilirubin AST ALT Alkaline Phosphatase Troponin T < 0.010 Total Protein Albumin Albumin/Globulin Ratio Lipase Urine Color Urine Turbidity Urine pH Ur Specific [place] Urine Protein Urine Glucose (UA) Urine Ketones Urine Blood Urine Nitrite Urine Bilirubin Urine Urobilinogen Ur Leukocyte Esterase Urine WBC (Auto) Urine RBC (Auto) U Epithel Cells (Auto) Urine Bacteria (Auto) Hyaline Casts Urine Mucus Urine Opiates Screen Urine Methadone Screen Ur Barbiturates Screen Ur Phencyclidine Scrn Ur Amphetamines Screen U Benzodiazepines Scrn Urine Cocaine Screen U Marijuana (THC) Screen Drugs of Abuse Note 03/12/19 03/12/19 03/12/19 22:57 22:57 23:18 WBC RBC Hgb Hct MCV MCH MCHC RDW Plt Count Lymph % (Auto) Scurry % (Auto) Eos % (Auto) Baso % (Auto) Lymph # Scurry # Eos # Baso # Seg Neutrophils % Seg Neutrophils # PT INR APTT D-Dimer Sodium Potassium Chloride Carbon Dioxide Anion Gap BUN Creatinine Estimated GFR BUN/Creatinine Ratio Glucose Calcium Total Bilirubin < 0.20 Direct Bilirubin < 0.2 Indirect Bilirubin 0.0 AST 17 ALT 7 Alkaline Phosphatase 65 Troponin T Total Protein 7.5 Albumin 3.5 L Albumin/Globulin Ratio 0.9 Lipase 12 L Urine Color Yellow Urine Turbidity Cloudy Urine pH 5.0 Ur Specific [place] 1.031 H Urine Protein <15 mg/dl Urine Glucose (UA) Neg Urine Ketones Neg Urine Blood Sm Urine Nitrite Neg Urine Bilirubin Neg Urine Urobilinogen < 2.0 Ur Leukocyte Esterase Neg Urine WBC (Auto) 3.0 Urine RBC (Auto) 5.0 U Epithel Cells (Auto) 23.0 H Urine Bacteria (Auto) 1+ Hyaline Casts 4 Urine Mucus 3+ Urine Opiates Screen Presumptive negative Urine Methadone Screen Presumptive negative Ur Barbiturates Screen Presumptive negative Ur Phencyclidine Scrn Presumptive negative Ur Amphetamines Screen Presumptive negative U Benzodiazepines Scrn Presumptive negative Urine Cocaine Screen Presumptive negative U Marijuana (THC) Screen Presumptive positive Drugs of Abuse Note Disclamer 03/13/19 03/13/19 03/13/19 00:24 03:29 03:29 WBC 6.3 RBC 3.84 Hgb 12.5 Hct 36.9 MCV 96 MCH 33 H MCHC 34 RDW 14.1 Plt Count 209 Lymph % (Auto) 44.9 H Scurry % (Auto) 6.2 Eos % (Auto) 0.4 Baso % (Auto) 0.6 Lymph # 2.8 Scurry # 0.4 Eos # 0.0 Baso # 0.0 Seg Neutrophils % 47.9 Seg Neutrophils # 3.0 PT INR APTT D-Dimer Sodium 136 L Potassium 3.9 Chloride 100.6 Carbon Dioxide 23 Anion Gap 16 BUN 10 Creatinine 0.8 Estimated GFR > 60 BUN/Creatinine Ratio 13 Glucose 98 Calcium 9.0 Total Bilirubin Direct Bilirubin Indirect Bilirubin AST ALT Alkaline Phosphatase Troponin T < 0.010 Total Protein Albumin Albumin/Globulin Ratio Lipase 12 L Urine Color Urine Turbidity Urine pH Ur Specific [place] Urine Protein Urine Glucose (UA) Urine Ketones Urine Blood Urine Nitrite Urine Bilirubin Urine Urobilinogen Ur Leukocyte Esterase Urine WBC (Auto) Urine RBC (Auto) U Epithel Cells (Auto) Urine Bacteria (Auto) Hyaline Casts Urine Mucus Urine Opiates Screen Urine Methadone Screen Ur Barbiturates Screen Ur Phencyclidine Scrn Ur Amphetamines Screen U Benzodiazepines Scrn Urine Cocaine Screen U Marijuana (THC) Screen Drugs of Abuse Note Assessment and Plan Patient seen and examined. I have reviewed the advanced practitioner's evaluation, assessment, and plan, and agree with them. I note the following additions: Patient with abdominal pain, TTP, and negative eval to date; given severity of symptoms will pursue EGD tomorrow to r/o PUD, gastric outlet obstruction, etc.
[2019-03-13] MEDS ORDERED: DULCOLAX PR STA (15:49)
[2019-03-13] MEDS ORDERED: DULCOLAX PR ONE (18:04)
[2019-03-13] MEDS: MIRALAX 3350 PO SCH (18:07)
[2019-03-13] MEDS: MORPHINE IV PRN (20:09)
--- NOTE | 2019-03-13 20:33 | Treadmill Report ---
THALLIUM STRESS TEST LEFT VENTRICLE: Left ventricular chamber size is within normal spread. Perfusion study demonstrates homogeneous uptake of the tracer in all segments, no significant perfusion defects identified. Gated analysis demonstrates normal left ventricular systolic function, ejection fraction 56%. CONCLUSION: Normal myocardial perfusion study. JOB# [id number] CA/NTS
[2019-03-13] MEDS: PROTONIX PO SCH (21:04)
[2019-03-13] MEDS: NORMODYNE PO SCH (21:04)
[2019-03-14] MEDS: MORPHINE IV PRN ×2 (08:07→15:42)
[2019-03-14] MEDS: LOVENOX SUB-Q SCH (09:13)
[2019-03-14] MEDS: MIRALAX 3350 PO SCH ×3 (09:44→17:47)
[2019-03-14] MEDS: NORMODYNE PO SCH (09:44)
[2019-03-14] MEDS: SODIUM CHLORIDE FLUSH SYRINGE 10 ML IV SCH (09:45)
[2019-03-14] MEDS: NORVASC PO SCH (09:45)
[2019-03-14] MEDS: PROTONIX PO SCH (09:45)
[2019-03-14] MEDS ORDERED: WATER FOR IRRIG STERILE IR ONE (12:08)
--- NOTE | 2019-03-14 13:05 | Anesthesia Day of Surgery ---
Anesthesia Day of Surgery - Day of Surgery Patient Examined: Yes Patient H&P Reviewed: Yes Patient is NPO: Yes Beta Blockers: Yes
--- NOTE | 2019-03-14 13:06 | Anesthesia Consultation ---
Anesthesia Consult and Med Hx Date of service: 03/14/19 - Airway Anesthetic Teeth Evaluation: Edentulous ROM Head & Neck: Adequate Mental/Hyoid Distance: Adequate - Pulmonary Exam CTA: Yes - Cardiac Exam Cardiac Exam: No Murmur - Pre-Operative Health Status ASA Pre-Surgery Classification: ASA3 Proposed Anesthetic Plan: MAC - Pulmonary Hx Smoking: Yes Hx Asthma: No COPD: No Hx Pneumonia: No - Cardiovascular System Hx Hypertension: Yes - Central Nervous System Hx Seizures: Yes - Endocrine Hx End Stage Renal Disease: No
[2019-03-14] MEDS ORDERED: NACL 0.9% 1000 ML 0 ML ONE (13:14)
[2019-03-14] MEDS ORDERED: NACL 0.9% 1000 ML 1,000 ML ONE (13:14)
[2019-03-14] MEDS ORDERED: XYLOCAINE 2% INFILTRATI ONE (14:16)
[2019-03-14] MEDS ORDERED: DIPRIVAN 10 MG/ML IV ONE (14:16)
[2019-03-14] MEDS ORDERED: VERSED ONE (14:16)
--- NOTE | 2019-03-14 14:32 | Operative Report ---
Operative Report Operative Report: DATE OF SERVICE: 03/14/19 SURGEON: Trever Walsh MD EGD with biopsy REPORT PREOPERATIVE DIAGNOSIS and POSTOPERATIVE DIAGNOSIS: epigastric abdominal pain ESTIMATED BLOOD LOSS: minimal DESCRIPTION OF PROCEDURE: A high-resolution EGD scope was passed through the oropharynx, esophagus, stomach, and second portion of duodenum. The scope was carefully withdrawn. Retroflexion was performed in the stomach. At the end of the procedure, the scope was cleaned using normal technique. Vital signs monitored continuously throughout. SEDATION: Provided by Anesthesiology Services. COMPLICATIONS: None. FINDINGS: * Normal Duodenum * 5 superficial gastric antral ulcers, 2-5mm in diameter, clean based and not bleeding. Biopsies were taken to rule out H. Pylori infection. A total of 6 biopsies were taken, 2 from the antrum, 1 from the incisura, 2 from the body. Additional biopsies taken from the ulcers * Z line irregular at 35cm from the incisors * Small 1cm sliding hiatal hernia * Remainder of the exam was normal RECOMMENDATIONS: * Continue PPI * I am adding carafate 1gm PO four times daily, please discharge with 30 day supply of this * F/u path * Smoking cessation education * Avoid NSAIDs * Resume Diet * May discharge when pain is controlled and patient is tolerating diet, may follow up with us in the office; given benign appearance of the ulcers and that the ulcers were biopsied, it's unlikely will require repeat EGD unless symptoms are refractory * GI will sign off
--- NOTE | 2019-03-14 14:48 | Discharge Summary ---
Providers - Providers Date of Admission: 03/13/19 04:12 Date of discharge: 03/14/19 Attending physician: SALVADOR DREW 03/13/19 Consult to Cardiac Rehabilitation [CONS] Routine Reason For Exam: Phase I 03/13/19 13:30 Consult to Physician [CONS] Routine Comment: Consulting Provider: AXEL REEVES Physician Instructions: Reason For Exam: abd pain Primary care physician: JIG FITTER Hospitalization Reason for admission: chest pain and abdominal pain. Condition: Stable Hospital course: Patient is a 48 y/o female with PMH of HTN, seizures, and pancreatitis who presented to ED with c/o CP and abdominal pain. The patient underwent further evaluation with Abdominal CT, chest CTA, cardiac enzymes, and stress test which were all found to be negative. Chest pain completely resolved and was actually felt to be associated to her abdominal pain. The pain was primarily left of the epigastrium and in left upper quadrant. GI consultation was obtained for further evaluation. The patient underwent EGD which revealed a normal duodenum. 5 superficial gastric antral ulcers, 2-5mm in diameter, clean based and not bleeding. Biopsies were taken to rule out H. Pylori infection. A total of 6 biopsies were taken, 2 from the antrum, 1 from the incisura, 2 from the body. Additional biopsies taken from the ulcers. Z line irregular at 35cm from the incisors. Small 1cm sliding hiatal hernia. GI felt the patient could discharge with PPI and Carafate. Patient was counseled on smoking cessation and to avoid NSAIDs. GI recommends that the patient should follow up in the office; given benign appearance of the ulcers and that the ulcers were biopsied, it's unlikely will require repeat EGD unless symptoms are refractory. Dedicated D/C time 32 minutes Disposition: DC-01 TO HOME OR SELFCARE Time spent for discharge: 32 - Discharge Diagnoses (1) Abdominal pain Status: Acute (2) Chest pain Status: Acute Core Measure Documentation - Palliative Care Palliative Care/ Comfort Measures: Not Applicable - Core Measures Any of the following diagnoses?: none Exam - Constitutional Vitals: Temp Pulse Resp BP Pulse Ox 99.1 F 74 14 172/80 100 03/14/19 11:50 03/14/19 12:00 03/14/19 11:50 03/14/19 11:50 03/14/19 11:50 General appearance: Present: no acute distress, well-nourished - EENT Eyes: Present: PERRL ENT: hearing intact, clear oral mucosa - Neck Neck: Present: supple, normal ROM - Respiratory Respiratory effort: normal Respiratory: bilateral: CTA - Cardiovascular Heart Sounds: Present: S1 & S2. Absent: rub, click - Extremities Extremities: pulses symmetrical, No edema Peripheral Pulses: within normal limits - Abdominal General gastrointestinal: Present: soft, non-tender, non-distended, normal bowel sounds Female genitourinary: Present: normal - Integumentary Integumentary: Present: clear, warm, dry - Musculoskeletal Musculoskeletal: gait normal, strength equal bilaterally - Psychiatric Psychiatric: appropriate mood/affect, intact judgment & insight - Neurologic Neurologic: CNII-XII intact, moves all extremities Plan Activity: no restrictions Weight Bearing Status: Full Weight Bearing Diet: regular Follow up with: PRIMARY CARE,MD [Primary Care Provider] - 3-5 Days Prescriptions: Sucralfate [Carafate] 1 gm PO ACHS 30 Days oral.liqd Labetalol [Normodyne TAB] 200 mg PO BID #30 tablet amLODIPine [Norvasc] 10 mg PO QDAY #30 tablet Pantoprazole [Protonix TAB] 40 mg PO BID #60 tablet
[2019-03-14 15:32] VITALS: BP 150/54
[2019-03-14] MEDS ORDERED: CARAFATE PO SCH (16:30)
== END 2019-03-14 18:29 | disposition home or self-care (01) ==
LOC: ED 21:18 → INTOOBSV 03-13 04:12 → 4A 03-13 04:12
PROVIDERS: ADMIT Internal Medicine; ATTEND Hospitalist
DX: R10.13 Epigastric pain (principal); I10 Essential (primary) hypertension; R07.89 Other chest pain; K59.00 Constipation, unspecified; R11.2 Nausea with vomiting, unspecified; F17.210 Nicotine dependence, cigarettes, uncomplicated; Z79.899 Other long term (current) drug therapy
CPT/HCPCS: 36415; 43235; 70450; 71046; 71275; 74177; 78452; 80048; 80076; 80307; 81001; 83690; 84484; 85025; 85379; 85610; 85730; 88305; 88342; 93005; 93010; 93017; 96361; 96372; 96374; 96375; 96376; 99284; A9502; G0378; J0360; J1650; J2250; J2270; J2405; J2704; J2785; J7030; Q9967

== ENCOUNTER 2019-04-12 10:15 | Emergency (ER) | payer BC ==
[2019-04-12 10:24] VITALS: BP 199/77
--- NOTE | 2019-04-12 10:51 | Emergency Department Report ---
ED ENT HPI - General Chief complaint: Earache Stated complaint: EAR PAIN Time Seen by Provider: 04/12/19 10:38 Source: patient Mode of arrival: Ambulatory Limitations: No Limitations - History of Present Illness Initial comments: 48-year-old female presents to ED with right ear pain 2 days. She reports associated sore throat. Denies fever, cough. MD complaint: ear pain -: days(s) (2) Location: R ear Severity: mild Quality: aching Consistency: intermittent Improves with: none Worsens with: none Associated Symptoms: sore throat. denies: fever, cough, discharge from ear, rhinorrhea - Related Data Previous Rx's Medication Instructions Recorded Last Taken Type Labetalol [Labetalol 200mg TAB] 200 mg PO BID #30 tablet 03/14/19 Unknown Rx Pantoprazole [Protonix TAB] 40 mg PO BID #60 tablet 03/14/19 Unknown Rx Sucralfate [Carafate] 1 gm PO ACHS 30 Days oral.liqd 03/14/19 Unknown Rx amLODIPine [Norvasc] 10 mg PO QDAY #30 tablet 03/14/19 Unknown Rx Naproxen [Naprosyn] 500 mg PO BID #20 tablet 04/12/19 Unknown Rx Allergies Allergy/AdvReac Type Severity Reaction Status Date / Time No Known Allergies Allergy Verified 04/12/19 10:16 ED Dental HPI - General Chief complaint: Earache Stated complaint: EAR PAIN Time Seen by Provider: 04/12/19 10:38 Source: patient Mode of arrival: Ambulatory Limitations: No Limitations - Related Data Previous Rx's Medication Instructions Recorded Last Taken Type Labetalol [Labetalol 200mg TAB] 200 mg PO BID #30 tablet 03/14/19 Unknown Rx Pantoprazole [Protonix TAB] 40 mg PO BID #60 tablet 03/14/19 Unknown Rx Sucralfate [Carafate] 1 gm PO ACHS 30 Days oral.liqd 03/14/19 Unknown Rx amLODIPine [Norvasc] 10 mg PO QDAY #30 tablet 03/14/19 Unknown Rx Naproxen [Naprosyn] 500 mg PO BID #20 tablet 04/12/19 Unknown Rx Allergies Allergy/AdvReac Type Severity Reaction Status Date / Time No Known Allergies Allergy Verified 04/12/19 10:16 ED Review of Systems ROS: Stated complaint: EAR PAIN Other details as noted in HPI Comment: All other systems reviewed and negative Constitutional: denies: chills, fever ENT: ear pain, throat pain Respiratory: denies: cough Gastrointestinal: denies: nausea, vomiting ED Past Medical Hx - Past Medical History Hx Hypertension: Yes Hx Congestive Heart Failure: No Hx Diabetes: No Hx Seizures: Yes Hx Asthma: No Hx COPD: No Additional medical history: ULCER - Social History Smoking Status: Current Every Day Smoker Substance Use Type: None - Medications Home Medications: Home Medications Medication Instructions Recorded Confirmed Last Taken Type Labetalol [Labetalol 200mg TAB] 200 mg PO BID #30 tablet 03/14/19 Unknown Rx Pantoprazole [Protonix TAB] 40 mg PO BID #60 tablet 03/14/19 Unknown Rx Sucralfate [Carafate] 1 gm PO ACHS 30 Days oral.liqd 03/14/19 Unknown Rx amLODIPine [Norvasc] 10 mg PO QDAY #30 tablet 03/14/19 Unknown Rx Naproxen [Naprosyn] 500 mg PO BID #20 tablet 04/12/19 Unknown Rx ED Physical Exam - General Limitations: No Limitations General appearance: alert, in no apparent distress - Head Head exam: Present: atraumatic, normocephalic - Eye Eye exam: Present: normal appearance, PERRL, EOMI - ENT ENT exam: Present: normal orophraynx, TM's normal bilaterally - Neck Neck exam: Present: normal inspection. Absent: tenderness - Respiratory Respiratory exam: Present: normal lung sounds bilaterally. Absent: respiratory distress - Cardiovascular Cardiovascular Exam: Present: regular rate, normal rhythm - GI/Abdominal GI/Abdominal exam: Absent: distended - Extremities Exam Extremities exam: Present: normal inspection - Neurological Exam Neurological exam: Present: alert, oriented X3 - Psychiatric Psychiatric exam: Present: normal affect, normal mood - Skin Skin exam: Present: warm, dry, intact, normal color ED Course Vital Signs 04/12/19 10:22 Temperature 98.4 F Pulse Rate 78 Respiratory 16 Rate Blood Pressure 199/77 O2 Sat by Pulse 100 Oximetry - Reevaluation(s) Reevaluation #1: 04/12/19 10:50 Initial BP 199/77. Hx HTN. has not yet taken her BP meds for the day. will take when she leaves Critical care attestation.: If time is entered above; I have spent that time in minutes in the direct care of this critically ill patient, excluding procedure time. ED Disposition Clinical Impression: Otalgia of right ear, Acute pharyngitis Disposition: TO HOME OR SELFCARE Is pt being admited?: No Condition: Stable Instructions: Pharyngitis (ED), Earache (ED) Prescriptions: Naproxen [Naprosyn] 500 mg PO BID #20 tablet Time of Disposition: 10:51
== END 2019-04-12 11:06 | disposition home or self-care (01) ==
LOC: ED 10:15
DX: J02.9 Acute pharyngitis, unspecified (principal); H92.01 Otalgia, right ear; I10 Essential (primary) hypertension; F17.200 Nicotine dependence, unspecified, uncomplicated
CPT/HCPCS: 99282

== ENCOUNTER 2020-06-10 10:28 | Emergency (ER) | payer SELFPAY ==
[2020-06-10] MEDS ORDERED: levETIRAcetam 1000 MG/NS 0.75% 1,000 MG/100 ML BAG IV ONE (10:57)
[2020-06-10] MEDS ORDERED: ACETAMINOPHEN 500 MG TAB ONE (11:21)
[2020-06-10] MEDS ORDERED: ACETAMINOPHEN 500 MG TAB PO ONE (11:22)
--- NOTE | 2020-06-10 11:24 | Emergency Department Report ---
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 She arrives at this emergency department awake and alert. She did not injure herself but states he feels sore all over as she usually does when she has a seizure. She states her last seizure was 2 years ag o. She is noncompliant with her medication and does not know what medication she was previously on. She has no other complaints. She does not report alcohol or substance consumption. She denies headache and fever. She states she was in bed at the time of the seizure. -: Sudden, minutes(s) Severity scale (0 -10): 0 Associated Symptoms: denies other symptoms - Related Data Previous Rx's Medication Instructions Recorded Last Taken Type Pantoprazole [Protonix TAB] 40 mg PO BID #60 tablet 03/14/19 Unknown Rx Sucralfate [Carafate] 1 gm PO ACHS 30 Days oral.liqd 03/14/19 Unknown Rx amLODIPine 10 mg PO QDAY #30 tablet 03/14/19 Unknown Rx labetaloL [Labetalol 200mg TAB] 200 mg PO BID #30 tablet 03/14/19 Unknown Rx Naproxen [Naprosyn] 500 mg PO BID #20 tablet 04/12/19 Unknown Rx levETIRAcetam [Keppra TAB] 500 mg PO BID #60 tablet 06/10/20 Unknown Rx Allergies Allergy/AdvReac Type Severity Reaction Status Date / Time No Known Allergies Allergy Verified 04/12/19 10:16 ED Review of Systems ROS: Stated complaint: SEIZURE Other details as noted in HPI Constitutional: denies: chills, fever Eyes: eye discharge. denies: eye pain, vision change ENT: denies: ear pain, throat pain Respiratory: denies: cough, shortness of breath, wheezing Cardiovascular: denies: chest pain, palpitations Endocrine: no symptoms reported Gastrointestinal: denies: abdominal pain, nausea, diarrhea Genitourinary: denies: urgency, dysuria, discharge Musculoskeletal: denies: back pain, joint swelling, arthralgia Skin: denies: rash, lesions Neurological: as per HPI. denies: headache, weakness, paresthesias Psychiatric: denies: anxiety, depression Hematological/Lymphatic: denies: easy bleeding, easy bruising ED Past Medical Hx - Past Medical History Previous Medical History?: Yes Hx Hypertension: Yes Hx Congestive Heart Failure: No Hx Diabetes: No Hx Seizures: Yes Hx Asthma: No Hx COPD: No Additional medical history: ULCER - Surgical History Past Surgical History?: No - Social History Smoking Status: Current Every Day Smoker Substance Use Type: None - Medications Home Medications: Home Medications Medication Instructions Recorded Confirmed Last Taken Type Pantoprazole [Protonix TAB] 40 mg PO BID #60 tablet 03/14/19 Unknown Rx Sucralfate [Carafate] 1 gm PO ACHS 30 Days oral.liqd 03/14/19 Unknown Rx amLODIPine 10 mg PO QDAY #30 tablet 03/14/19 Unknown Rx labetaloL [Labetalol 200mg TAB] 200 mg PO BID #30 tablet 03/14/19 Unknown Rx Naproxen [Naprosyn] 500 mg PO BID #20 tablet 04/12/19 Unknown Rx levETIRAcetam [Keppra TAB] 500 mg PO BID #60 tablet 06/10/20 Unknown Rx ED Physical Exam - General Limitations: No Limitations General appearance: alert, in no apparent distress - Head Head exam: Present: atraumatic, normocephalic - Eye Eye exam: Present: normal appearance. Absent: scleral icterus - ENT ENT exam: Present: mucous membranes moist, other (Edentulous). Absent: normal exam (No oral injury) - Neck Neck exam: Present: normal inspection. Absent: tenderness, meningismus - Respiratory Respiratory exam: Present: normal lung sounds bilaterally. Absent: respiratory distress - Cardiovascular Cardiovascular Exam: Present: regular rate, normal rhythm. Absent: systolic murmur, diastolic murmur, rubs, gallop - GI/Abdominal GI/Abdominal exam: Present: soft, normal bowel sounds. Absent: distended, tenderness, guarding, rebound - Extremities Exam Extremities exam: Present: normal inspection - Back Exam Back exam: Present: normal inspection - Neurological Exam Neurological exam: Present: alert, oriented X3, CN II-XII intact. Absent: motor sensory deficit - Psychiatric Psychiatric exam: Present: normal affect, normal mood - Skin Skin exam: Present: warm, dry, intact, normal color. Absent: rash ED Course Vital Signs 06/10/20 06/10/20 06/10/20 10:40 10:42 10:45 Temperature 98.2 F Pulse Rate 89 85 89 Respiratory 20 14 12 Rate Blood Pressure 153/75 153/75 O2 Sat by Pulse 99 99 Oximetry 06/10/20 06/10/20 11:15 11:45 Temperature Pulse Rate 89 77 Respiratory 15 17 Rate Blood Pressure 180/77 158/55 O2 Sat by Pulse 100 100 Oximetry - Reevaluation(s) Reevaluation #1: Anna. Basic labs. Outpatient referral. 06/10/20 11:27 ED Medical Decision Making - Lab Data Result diagrams: 06/10/20 11:06 06/10/20 11:06 Laboratory Results - last 24 hr 06/10/20 11:06 Sodium 143 Potassium 3.8 Chloride 106.9 Carbon Dioxide 26 Anion Gap 14 BUN 12 Creatinine 0.9 Estimated GFR > 60 BUN/Creatinine Ratio 13 Glucose 124 H Calcium 9.4 Critical care attestation.: If time is entered above; I have spent that time in minutes in the direct care of this critically ill patient, excluding procedure time. ED Disposition Clinical Impression: Seizure, Seizure disorder Disposition: DC-01 TO HOME OR SELFCARE Is pt being admited?: No Does the pt Need Aspirin: No Condition: Stable Instructions: Recurrent Seizures Adult (ED) Additional Instructions: Do not drive until cleared by a licensed physician, neurologist preferably. See referrals. Rx as directed. Prescriptions: levETIRAcetam [Keppra TAB] 500 mg PO BID #60 tablet Referrals: [facility] [Provider Group] - 3-5 Days DEBRA JOINER MD [Referring] - 3-5 Days Time of Disposition: 12:44
[2020-06-10 11:42] LABS: BUN/Creatinine Ratio 13; Blood Urea Nitrogen 12 mg/dL (7-17); Calcium 9.4 mg/dL (8.4-10.2); Hemolysis Index 10
[2020-06-10 12:16] LABS: Basophils % (Auto) 0.3 % (0.0-1.8); Eosinophils % (Auto) 0.4 % (0.0-4.3); Hematocrit 36.2 % (30.3-42.9); Hemoglobin 12.9 gm/dl (10.1-14.3); Lymphocytes # (Auto) 1.5 K/mm3 (1.2-5.4); Lymphocytes % (Auto) 23.5 % (13.4-35.0); Mean Corpuscular HGB Conc 36 % (30-34); Mean Corpuscular Volume 99 fl (79-97); Monocytes # (Auto) 0.4 K/mm3 (0.0-0.8); Monocytes % (Auto) 5.8 % (0.0-7.3); Platelet Count 255 K/mm3 (140-440); Red Blood Count 3.65 M/mm3 (3.65-5.03); Red Cell Distribution Width 15.3 % (13.2-15.2)
[2020-06-10 13:51] VITALS: BP 181/79
== END 2020-06-10 13:51 | disposition home or self-care (01) ==
LOC: ED 10:28
DX: G40.909 Epilepsy, unspecified, not intractable, without status epilepticus (principal); I10 Essential (primary) hypertension; F17.200 Nicotine dependence, unspecified, uncomplicated; Z79.899 Other long term (current) drug therapy
CPT/HCPCS: 36415; 80048; 85025; 96365; 96366; 99283; J1953